=== PATIENT | male | born 1990 | race Caucasian/White ===

== ENCOUNTER 2019-05-13 23:48 | Emergency (ER) | payer OTHER ==
[~2019-05-13] VITALS: Ht 165.1 cm; Wt 80.7 kg
[2019-05-13 23:55] VITALS: Ht 165.1 cm; Wt 80.7 kg
[2019-05-14 01:08] VITALS: BP 126/85
== END 2019-05-14 01:08 | disposition home or self-care (01) ==
LOC: ED 23:48
DX: S61.210A Laceration without foreign body of right index finger without damage to nail, initial encounter (principal); S60.512A Abrasion of left hand, initial encounter; S60.511A Abrasion of right hand, initial encounter; W54.0XXA Bitten by dog, initial encounter; Y93.89 Activity, other specified; Y92.89 Other specified places as the place of occurrence of the external cause; Y99.8 Other external cause status
CPT/HCPCS: 90715; Q0092